=== PATIENT | male | born 1990 | race Caucasian/White ===

== ENCOUNTER 2019-08-06 17:15 | Emergency (ER) | payer OTHER ==
[2019-08-06] MEDS ORDERED: Diphtheria,Pertussis(Acell),Tetanus Vaccine 0.5 ML Syringe IM ONE (17:37)
[2019-08-06] MEDS ORDERED: Ibuprofen 600 MG Tab PO ONE (17:39)
[2019-08-06] MEDS ORDERED: Lidocaine 1% 10 ML MDV INJECT ONE (17:39)
--- NOTE | 2019-08-06 18:05 | EDM.PDOC ---
ED [facility] GENERAL MEDICAL PROBLEM - General Chief Complaint: Laceration Stated Complaint: INJURY TO THUMB Time Seen by Provider: 08/06/19 18:02 Source of Information: Reports: Patient History Limitations: Reports: No Limitations - History of Present Illness INITIAL COMMENTS - FREE TEXT/NARRATIVE: Patient is 28-year-old male no significant past medical history presenting with a chief complaint of laceration to the left thumb. Laceration occurred just prior to arrival. Occurred while patient was preparing food and he sliced his thumb with a fillet knife. Patient reports bleeding and pain. Patient denies any other injuries. Patient did not take any medications prior to arrival. Patient denies any associated numbness or tingling. Bleeding controlled with direct pressure Pmhx: None Pshx: None Family Hx: noncontributory Smoking history? no Etoh use? none Drug use? none Review of systems performed and otherwise negative as per the HPI I have reviewed the triage vital signs Const: Well nourished, well developed, appears stated age Eyes: PERRL, no conjunctival injection HENT: NCAT, Neck supple without meningismus CV: RRR, Warm, well-perfused extremities RESP: CTAB, Unlabored respiratory effort GI: soft, non-tender, non-distended, no masses MSK: No gross deformities appreciated Skin: Linear laceration to the lateral surface of the left thumb. Approximately 3 to 4 cm in length. No evidence of arterial bleeding. tendon function is intact.. 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 Sensation and motor function of extremities grossly intact. Psych: Appropriate mood and affect Assessment and plan: Patient is 28-year-old male presenting with linear laceration to the left thumb. No evidence of foreign body on exam. No evidence of fracture on exam. Laceration repaired without complications in the ER. Patient given return precautions. Instructed to follow-up in 5 days for suture removal. All questions addressed and answered. Patient agrees with plan. Laceration Repair procedure note: Garment Folder: Dr. Lord Indication: Laceration Location: Left thumb Size: 4-5 cm The wound was prepped in sterile fashion using Betadine. Anesthesia was achieved with (10) mL of (1% lidocaine without epinephrine) used for digital nerve block. The wound was irrigated (with 500cc NS) and explored. There were no foreign bodies or tendon injuries. The wound was reapproximated in 1 layers using 4 6-0 nylon interrupted sutures percutaneously. There was excellent reapproximation of the wound edges. The patient tolerated the procedure without complication. left thumb Pain Score (Numeric/FACES): 5 - Related Data Allergies Allergy/AdvReac Type Severity Reaction Status Date / Time Penicillins Allergy Unknown Other Verified 08/06/19 17:35 Past Medical History - Past Health History Medical/Surgical History: Denies Medical/Surgical History Social & Family History - Family History Family Medical History: Noncontributory - Tobacco Use Smoking Status *Q: Unknown Ever Smoked ED ROS GENERAL - Review of Systems Review Of Systems: See Below ED EXAM, SKIN/RASH Exam: See Below Course - Vital Signs Last Recorded V/S: Last Vital Signs Temp 36.1 C 08/06/19 19:06 Pulse 68 08/06/19 19:06 Resp 17 08/06/19 19:06 BP 128/83 08/06/19 19:06 Pulse Ox 98 08/06/19 19:06 - Orders/Labs/Meds Orders: Active Orders 24 hr Category Date Time Status Vaccines to be Administered [RC] PER UNIT ROUTINE Care 08/06/19 17:37 Active Meds: Medications Discontinued Medications Generic Name Dose Route Start Last Admin Trade Name Freq PRN Reason Stop Dose Admin Bacitracin 1 dose 08/06/19 18:58 08/06/19 19:01 Bacitracin Oint 1 Gm TOP 08/06/19 18:59 1 dose ONETIME ONE Administration Bacitracin Confirm 08/06/19 18:59 Bacitracin Oint 1 Gm Administered 08/06/19 19:00 Dose 1 dose .ROUTE .STK-MED ONE Diphtheria/Tetanus/Acell Pertussis 0.5 ml 08/06/19 17:37 08/06/19 17:50 Adacel IM 08/06/19 17:38 0.5 ml .ONCE ONE Administration Ibuprofen 600 mg 08/06/19 17:39 08/06/19 17:50 Motrin PO 08/06/19 17:40 600 mg ONETIME ONE Administration Lidocaine HCl 10 ml 08/06/19 17:39 08/06/19 17:50 Xylocaine 1% INJECT 08/06/19 17:40 Not Given ONETIME ONE Lidocaine HCl 5 ml 08/06/19 17:44 08/06/19 17:49 Xylocaine-Mpf 1% INJECT 08/06/19 17:45 Not Given ONETIME ONE Lidocaine HCl Confirm 08/06/19 17:44 08/06/19 17:50 Xylocaine-Mpf 1% Administered 08/06/19 17:45 10 ml Dose Administration 10 ml .ROUTE .STK-MED ONE Lidocaine HCl 5 ml 08/06/19 18:27 08/06/19 19:01 Xylocaine-Mpf 1% INJECT 08/06/19 18:28 5 ml ONETIME ONE Administration Departure - Departure Time of Disposition: 18:56 Disposition: Home, Self-Care 01 Clinical Impression: Laceration of thumb, left - Discharge Information Instructions: Sutured Wound Care, [id number] Referrals: PCP,None [Primary Care Provider] - Forms: ED Department Discharge Additional Instructions: The following information is given to patients seen in the emergency department who are being discharged to home. This information is to outline your options for follow-up care. We provide all patients seen in our emergency department with a follow-up referral. The need for follow-up, as well as the timing and circumstances, are variable depending upon the specifics of your emergency department visit. If you don't have a primary care physician on staff, we will provide you with a referral. We always advise you to contact your personal physician following an emergency department visit to inform them of the circumstance of the visit and for follow-up with them and/or the need for any referrals to a consulting specialist. The emergency department will also refer you to a specialist when appropriate. This referral assures that you have the opportunity for follow-up care with a specialist. All of these measure are taken in an effort to provide you with optimal care, which includes your follow-up. Under all circumstances we always encourage you to contact your private physician who remains a resource for coordinating your care. When calling for follow-up care, please make the office aware that this follow-up is from your recent emergency room visit. If for any reason you are refused follow-up, please contact the [facility] Emergency Department at and asked to speak to the emergency department charge nurse. Sepsis Event Note - Evaluation Sepsis Screening Result: No Definite Risk - Focused Exam Date Exam was Performed: 08/07/19 Time Exam was Performed: 07:12 - My Orders Last 24 Hours: My Active Orders 08/06/19 17:37 Vaccines to be Administered [RC] PER UNIT ROUTINE - Assessment/Plan Last 24 Hours: My Active Orders 08/06/19 17:37 Vaccines to be Administered [RC] PER UNIT ROUTINE
[2019-08-06] MEDS ORDERED: Bacitracin Oint 1 GM U/D Packet TOP ONE (18:58)
[2019-08-06] MEDS ORDERED: Bacitracin Oint 1 GM U/D Packet ONE (18:59)
== END 2019-08-06 19:08 | disposition home or self-care (01) ==
LOC: MW.ED 17:15
DX: S61.012A Laceration without foreign body of left thumb without damage to nail, initial encounter (principal); Z88.0 Allergy status to penicillin; Z23 Encounter for immunization; W26.0XXA Contact with knife, initial encounter
CPT/HCPCS: 12002; 90471; 90715; 99282; A9270; J2001